=== PATIENT | male | born 1995 | race Caucasian/White ===

== ENCOUNTER 2020-08-05 06:40 | Emergency (ER) | payer OTHER ==
[~2020-08-05] VITALS: Ht 185.4 cm; Wt 90.0 kg
[2020-08-05 06:40] VITALS: BP 139/44
--- NOTE | 2020-08-05 06:50 | PHYS DOC ---
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 Noticed this several days ago. He has been applying warm compresses daily with increased redness and subsequent expulsion of yellow purulent serosanguineous material overnight prompting his visit today. Pain has been tolerable, has not taken anything for this. He has had no fever. He has history of having folliculitis and other local skin infections but nothing to this extent. Review of Systems Review of Systems Fourteen body systems of review of systems have been reviewed. See HPI for pertinent positives and negative responses, other zhu all other systems are negative, non-pertinent or non-contributory Physical Exam Physical Exam Constitutional: Well developed, well nourished, no acute distress, non-toxic appearance. HENT: Normocephalic, atraumatic, bilateral external ears normal, oropharynx moist, no oral exudates, nose normal. Eyes: PERRLA, EOMI, conjunctiva normal, no discharge. Neck: Normal range of motion, no tenderness, supple, no stridor. Cardiovascular: Heart rate regular per monitor Lungs & Thorax: Bilateral chest rise, no obvious respiratory distress or accessory muscle use Abdomen: Soft, nondistended Skin: Warm, dry, no rash. Abscess that is actively draining serosanguineous material 5 cm total diameter with a pustular head that is open and draining that is less than 2 mm present on medial portion of right groin without genital involvement. Erythema border approximately 5 cm, no crepitus or other palpable abnormalities. Back: No tenderness, no CVA tenderness. Extremities: No tenderness, no cyanosis, no clubbing, ROM intact, no edema. Neurologic: Alert and oriented X 3, grossly normal motor & sensory function, no focal deficits noted. Psychologic: Affect normal, judgement normal, mood normal. EKG EKG [] Radiology/Procedures Radiology/Procedures [] Heart Score Risk Factors: Risk Factors: DM, Current or recent (<one month) smoker, HTN, HLP, family history of CAD, obesity. Risk Scores: Risk Factors: DM, Current or recent (<one month) smoker, HTN, HLP, family history of CAD, obesity. Course & Med Decision Making Course & Med Decision Making ABCs unremarkable and nontoxic well-appearing patient Classic abscess with surrounding cellulitis. Discussed risk and benefits of incision and drainage but given that patient has already been providing suppor tive care such as warm compresses and site in question is actively draining, I do not feel there is any indication for additional incision at this time. Significant purulent material was expelled from abscess while in ER setting. Joint decision to cover patient with antibiotics in the meantime. 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 Strict return precautions were discussed with good understanding by patient, all questions and concerns addressed prior to ER departure in stable condition with new prescription for Keflex Dragon Disclaimer Dragon Disclaimer This electronic medical record was generated, in whole or in part, using a voice recognition dictation system. Departure Departure: Impression: Primary Impression: Abscess of leg, right Disposition: 01 DC HOME SELF CARE/HOMELESS Condition: STABLE Referrals: PCP,UNKNOWN (PCP) Patient Instructions: Abscess, Abscess, Care After Additional Instructions: You were evaluated in the Emergency Department for an abscess. You should soak the area in warm water for 20-30 minutes 3-4 times daily. Contact your doctor when the abscess comes to a head (looks like it is almost ready to pop open) and needs to be drained. Please keep the areas surrounding the abscess clean and dry. Take the antibiotics prescribed to you in full as directed. Please follow up with your primary care physician as needed. If you do not have a primary doctor, you can call your insurance company to find one. If you do not have insurance, you can go to the finance/registration department for more assistance. Return to the Emergency Department if you experience worsening pain, persistent fevers greater than 100.4, an increase in area of redness, increased tenderness/warmth around the abscess, foul smelling discharge from the abscess, Scripts Cephalexin (KEFLEX) 500 Mg Capsule 500 MG PO QID for abscess for 5 Days, #20 TAB Prov: JUDD BRADSHAW DO 08/05/20 JUDD BRADSHAW DO Aug 05, 2020 06:50
[2020-08-05] MEDS ORDERED: CEPHALEXIN 250 MG CAPSULE ONE (07:24)
[2020-08-05] MEDS ORDERED: CEPHALEXIN 250 MG CAPSULE PO ONE (07:30)
[2020-08-05] MEDS ORDERED: CEPH-264 PO (07:38)
== END 2020-08-05 07:40 | disposition home or self-care (01) ==
LOC: ER 06:40
DX: L02.415 Cutaneous abscess of right lower limb (principal)
CPT/HCPCS: 99283

== ENCOUNTER 2021-02-11 07:46 | Emergency (ER) | payer OTHER ==
[~2021-02-11] VITALS: Ht 188 cm; Wt 93.1 kg
[~2021-02-11 07:46] MED LIST: CEPH-264 PO
--- NOTE | 2021-02-11 07:58 | PHYS DOC ---
Past History Past Medical History: No Pertinent History Past Surgical History: No Surgical History Alcohol Use: Occasionally Adult General Chief Complaint Chief Complaint: EYE PROBLEMS HPI HPI Patient is a [age] year old [sex] who presents with [] Review of Systems Review of Systems Fourteen body systems of review of systems have been reviewed. See HPI for pertinent positives and negative responses, other zhu all other systems are negative, non-pertinent or non-contributory Allergies Allergies Allergies Coded Allergies Type Severity Reaction Last Updated Verified No Known Drug Allergies 08/05/20 No Physical Exam Physical Exam Constitutional: Well developed, well nourished, no acute distress, non-toxic appearance. HENT: Normocephalic, atraumatic, bilateral external ears normal, oropharynx moist, no oral exudates, nose normal. Eyes: PERRLA, EOMI, conjunctiva normal, no discharge. Neck: Normal range of motion, no tenderness, supple, no stridor. Cardiovascular: Heart rate regular per monitor Lungs & Thorax: No respiratory distress or accessory muscle use, bilateral chest rise Abdomen: Abdomen soft, non-tender, bowel sounds present in all quadrants, no guarding or rebound, nonacute abdomen. Skin: Warm, dry, no erythema, no rash. Back: No tenderness, no CVA tenderness. Extremities: No tenderness, no cyanosis, no clubbing, ROM intact, no edema. Neurologic: Alert and oriented X 3, grossly normal motor & sensory function, no focal deficits noted. Psychologic: Affect normal, judgement normal, mood normal. Current Patient Data Vital Signs Vital Signs Date Time Temp Pulse Resp B/P (MAP) Pulse Ox O2 Delivery O2 Flow Rate FiO2 02/11/21 08:19 97.7 63 20 119/51 (73) Room Air 96.0 Vital Signs Date Time Temp Pulse Resp B/P (MAP) Pulse Ox O2 Delivery O2 Flow Rate FiO2 02/11/21 08:19 97.7 63 20 119/51 (73) Room Air 96.0 EKG EKG [] Radiology/Procedures Radiology/Procedures [] Heart Score Risk Factors: Risk Factors: DM, Current or recent (<one month) smoker, HTN, HLP, family history of CAD, obesity. Risk Scores: Risk Factors: DM, Current or recent (<one month) smoker, HTN, HLP, family history of CAD, obesity. Course & Med Decision Making Course & Med Decision Making Pertinent Labs and Imaging studies reviewed. (See chart for details) [] Dragon Disclaimer Dragon Disclaimer This electronic medical record was generated, in whole or in part, using a voice recognition dictation system. Departure Departure: Impression: Primary Impression: Blepharitis of eyelid of left eye Disposition: HOME / SELF CARE / HOMELESS Condition: STABLE Referrals: PCP,UNKNOWN (PCP) Patient Instructions: Blepharitis Additional Instructions: As discussed prior to ER departure, you are most likely suffering from a condition called blepharitis. As disclosed, there is inconclusive evidence whether antibiotics and/or topical steroids are effective for this As such, please perform the following: Lid hygiene is most important Avoid eye-makeup Warm compresses 15min 4x/day Scrub with mild shampoo BID As disclosed, please contact your primary care physician tomorrow to review ER visit today. If your symptoms do not improve, there might be indication for antibiotic ointment. It was a pleasure to take care of you and I wish you the best going forward JUDD BRADSHAW DO Feb 11, 2021 07:57
[2021-02-11 08:19] VITALS: BP 119/51
== END 2021-02-11 08:27 | disposition home or self-care (01) ==
LOC: ER 07:46
DX: H01.006 Unspecified blepharitis left eye, unspecified eyelid (principal)
CPT/HCPCS: 99281